=== PATIENT | male | born 1950 | race Caucasian/White ===

== ENCOUNTER 2019-05-26 14:08 | Observation (INO) ==
[2019-05-26] MEDS ORDERED: ONDANSETRON 4 MG/2 ML VIAL IV STA (14:58)
[2019-05-26] MEDS ORDERED: oxyCODONE/ACETAMINOPHEN 5-325 MG TABLET PO STA (14:59)
[2019-05-26] MEDS ORDERED: HYDROmorphone 2 MG/1 ML VIAL IV STA ×2 (15:11→16:05)
[2019-05-26 15:16] LABS: Basophils % 0.3 % (0.0-0.8); Eosinophils % 0.4 % (0.00-10.9); Hematocrit 39.7 VOL% (42.0-52.0); Hemoglobin 13.6 GM/DL (14.0-18.0); Immature Granulocytes % 0.5 %; Immature Granulocytes Absolute 0.05 #; Lymphocytes # 1.4 10*3/uL (1.4-4.0); Lymphocytes % 13.8 % (21.2-54.2); Mean Corpuscular HGB Conc 34.3 GM/DL (32-36); Mean Corpuscular Volume 93.6 FL (87-102); Mean Platelet Volume 9.1 FL (9.6-12.0); Monocytes % 5.7 % (1.7-12.7); Neutrophils % 79.3 % (38.7-73.9); Platelet Count 291 T/CUMM (130-400); Red Blood Count 4.24 MC/CUMM (3.8-5.5); Red Cell Distribution Width 13.3 % (9.3-17.3); White Blood Count 9.9 T/CUMM (4-12)
[2019-05-26 15:39] LABS: Alanine Aminotransferase 36 U/L (16-61); Albumin 3.5 G/DL (3.4-5.0); Alkaline Phosphatase 88 U/L (45-117); Aspartate Amino Transferase 17 U/L (0-37); Bilirubin,Total < 0.39 MG/DL (0.2-1.0); Blood Urea Nitrogen 15 MG/DL (7-18); Calcium 9.6 MG/DL (8.5-10.1); Estimated Glom Filtration Rate 96 ML/MIN; Glucose 132 MG/DL (74-106); Osmolality,Calculated 277.7 MOS/KG (273-304); Total Protein 7.1 G/DL (6.4-8.3)
[2019-05-26] MEDS ORDERED: ACETAMINOPHEN 325 MG TABLET PO PRN (16:55)
[2019-05-26] MEDS ORDERED: ONDANSETRON 4 MG/2 ML VIAL IV PRN (16:55)
[2019-05-26] MEDS ORDERED: traMADol 50 MG TABLET PO PRN (17:33)
[2019-05-26] MEDS ORDERED: NITROGLYCERIN SL 0.4 MG TABLET SL PRN (17:33)
[2019-05-26] MEDS ORDERED: PHENAZOPYRIDINE 95 MG TABLET PO PRN (17:33)
[2019-05-26 19:44] LABS: Apearance,Urine Slightly Hazy (Clear); Bacteria,Urine Occasional /HPF (Few); Bilirubin,Urine Negative (Negative); Blood, Urine Negative (Negative); Glucose,Urine (UA) Negative (Negative); Ketones,Urine Negative (Negative); Nitrite,Urine Negative (Negative); Protein,Urine Negative; RBC,Urine 3 /HPF (0-4); Urine Color Yellow (Yellow); Urine Specific Gravity 1.008 (1.001-1.035); Urine Urobilinogen < 2.0 EU/DL (0.2-1.0); WBC,Urine 45 /HPF (0-6)
[2019-05-26] MEDS: TAMSULOSIN 0.4 MG CAPSULE PO SCH (20:09)
[2019-05-26] MEDS: DOCUSATE SODIUM 100 MG CAPSULE PO SCH (20:09)
[2019-05-26] MEDS: clonazePAM 0.5 MG TABLET PO SCH (20:09)
[2019-05-26] MEDS ORDERED: AMITRIPTYLINE 25 MG TABLET PO SCH (21:00)
[2019-05-26] MEDS: NABUMETONE 500 MG TABLET PO SCH (21:14)
[2019-05-26] MEDS: HEPARIN 5,000 UNIT/1 ML VIAL SUBCUT SCH (22:40)
[2019-05-26] MEDS: MORPHINE 4 MG/1 ML VIAL IV PRN (22:40)
[2019-05-27] MEDS ORDERED: KETOROLAC 30 MG/1 ML VIAL IV ONE (01:26)
[2019-05-27] MEDS: LIDOCAINE 5% PATCH TRANSDERM SCH ×2 (01:48→08:33)
[2019-05-27] MEDS: MORPHINE 4 MG/1 ML VIAL IV PRN ×2 (04:25→08:37)
[2019-05-27 05:30] LABS: Basophils % 0.3 % (0.0-0.8); Eosinophils % 0.3 % (0.00-10.9); Hematocrit 39.2 VOL% (42.0-52.0); Hemoglobin 13.2 GM/DL (14.0-18.0); Immature Granulocytes % 0.4 %; Immature Granulocytes Absolute 0.04 #; Lymphocytes # 1.6 10*3/uL (1.4-4.0); Lymphocytes % 17.4 % (21.2-54.2); Mean Corpuscular HGB Conc 33.7 GM/DL (32-36); Mean Corpuscular Volume 94.7 FL (87-102); Mean Platelet Volume 9.8 FL (9.6-12.0); Neutrophils % 75.6 % (38.7-73.9); Platelet Count 291 T/CUMM (130-400); Red Blood Count 4.14 MC/CUMM (3.8-5.5); Red Cell Distribution Width 13.2 % (9.3-17.3); White Blood Count 9.2 T/CUMM (4-12)
[2019-05-27 06:13] LABS: Albumin 3.4 G/DL (3.4-5.0); Bilirubin,Total 1.1 MG/DL (0.2-1.0); Calcium 9.4 MG/DL (8.5-10.1); Osmolality,Calculated 278.3 MOS/KG (273-304); Risk Ratio 3.23; Thyroid Stimulating Hormone 1.52 uIU/ml (0.358-3.74); Total Protein 7.4 G/DL (6.4-8.3); VLDL CHOLESTEROL 13.8 MG/DL
[2019-05-27] MEDS: HEPARIN 5,000 UNIT/1 ML VIAL SUBCUT SCH ×2 (06:39→14:41)
[2019-05-27] MEDS ORDERED: LORazepam 2 MG/1 ML VIAL IV ONE (07:08)
[2019-05-27] MEDS ORDERED: diphenhydrAMINE 50 MG/1 ML VIAL IV ONE (07:09)
[2019-05-27] MEDS ORDERED: LINACLOTIDE 145 MCG CAPSULE PO SCH (07:30)
[2019-05-27] MEDS ORDERED: MORPHINE ER 15 MG TABLET PO SCH (07:30)
[2019-05-27] MEDS: DOCUSATE SODIUM 100 MG CAPSULE PO SCH (08:32)
[2019-05-27] MEDS: TAMSULOSIN 0.4 MG CAPSULE PO SCH (08:32)
[2019-05-27] MEDS: clonazePAM 0.5 MG TABLET PO SCH (08:33)
[2019-05-27] MEDS: NABUMETONE 500 MG TABLET PO SCH (08:44)
[2019-05-27] MEDS ORDERED: LIDOCAINE 5% PATCH TRANSDERM SCH (09:00)
[2019-05-27] MEDS ORDERED: CARISOPRODOL 350 MG TABLET PO SCH (09:00)
[2019-05-27] MEDS ORDERED: cefTRIAXone 1,000 MG in SYRINGE 1 EACH IV SCH (10:00)
[2019-05-27 13:37] VITALS: BP 134/70
[2019-05-27] MEDS ORDERED: clonazePAM 0.5 MG TABLET PO SCH (21:00)
== END 2019-05-27 15:35 | disposition home health service (06) ==
LOC: N.EDINP 14:08 → N.ED 14:08 → N.EDINP 18:48 → N.2W 19:33
PROVIDERS: ADMIT Internal Medicine; ATTEND Internal Medicine

== ENCOUNTER 2019-08-30 16:30 | Inpatient (IN) ==
[2019-08-30] MEDS ORDERED: KETOROLAC 30 MG/1 ML VIAL IV STA (17:24)
[2019-08-30] MEDS ORDERED: HYDROmorphone 2 MG/1 ML VIAL IV STA ×2 (17:24→21:47)
[2019-08-30] MEDS ORDERED: SODIUM CHLORIDE 0.9% 1,000 ML IV STA (17:24)
[2019-08-30] MEDS ORDERED: ONDANSETRON 4 MG/2 ML VIAL IV STA ×2 (17:24→21:48)
[2019-08-30] MEDS ORDERED: DIPH/TET/ACEL PERT BOOSTER VACCINE 0.5 ML VIAL IM ONE (17:24)
[2019-08-30 19:44] LABS: Basophils % 0.3 % (0.0-0.8); Eosinophils # 0.1 10*3/uL (0.0-0.87); Hematocrit 36.4 VOL% (42.0-52.0); Hemoglobin 11.9 GM/DL (14.0-18.0); Immature Granulocytes % 0.4 %; Immature Granulocytes Absolute 0.05 #; Lymphocytes # 1.2 10*3/uL (1.4-4.0); Lymphocytes % 9.7 % (21.2-54.2); Mean Corpuscular HGB Conc 32.7 GM/DL (32-36); Mean Corpuscular Volume 97.8 FL (87-102); Mean Platelet Volume 9.7 FL (9.6-12.0); Monocytes % 4.9 % (1.7-12.7); Neutrophils % 83.7 % (38.7-73.9); Platelet Count 239 T/CUMM (130-400); Red Blood Count 3.72 MC/CUMM (3.8-5.5); Red Cell Distribution Width 12.7 % (9.3-17.3); White Blood Count 12.7 T/CUMM (4-12)
[2019-08-30 19:54] LABS: PT Patient Result 10.5 SECS (9.6-12.2)
[2019-08-30 20:05] LABS: Alanine Aminotransferase 19 U/L (16-61); Albumin 3.2 G/DL (3.4-5.0); Alkaline Phosphatase 105 U/L (45-117); Aspartate Amino Transferase 11 U/L (0-37); Blood Urea Nitrogen 14 MG/DL (7-18); Calcium 8.9 MG/DL (8.5-10.1); Estimated Glom Filtration Rate 79 ML/MIN; Glucose 99 MG/DL (74-106); Osmolality,Calculated 277.5 MOS/KG (273-304)
[2019-08-30 20:58] LABS: Apearance,Urine Slightly Hazy (Clear); Bacteria,Urine Occasional /HPF (Few); Bilirubin,Urine Negative (Negative); Blood, Urine Negative (Negative); Glucose,Urine (UA) Negative (Negative); Ketones,Urine Negative (Negative); Mucus,Urine Occasional /LPF (Occasional); Nitrite,Urine Negative (Negative); Protein,Urine Negative; RBC,Urine 4 /HPF (0-4); Urine Color Yellow (Yellow); Urine Specific Gravity 1.008 (1.001-1.035); Urine Urobilinogen < 2.0 EU/DL (0.2-1.0); WBC,Urine 207 /HPF (0-6)
[2019-08-30] MEDS ORDERED: ALBUTEROL/IPRATROPIUM 3 ML NEB RESP TX PRN (22:50)
[2019-08-31] MEDS: SODIUM CHLORIDE 0.9% 1,000 ML IV SCH ×2 (00:59→12:50)
[2019-08-31] MEDS: HYDROmorphone 2 MG/1 ML VIAL IV PRN ×3 (01:21→07:35)
[2019-08-31] MEDS: ONDANSETRON 4 MG/2 ML VIAL IV PRN ×2 (01:22→07:42)
[2019-08-31] MEDS: cefTRIAXone 1,000 MG in SYRINGE 1 EACH IV SCH (05:25)
[2019-08-31 05:41] LABS: Basophils % 0.4 % (0.0-0.8); Eosinophils # 0.1 10*3/uL (0.0-0.87); Eosinophils % 0.9 % (0.00-10.9); Hematocrit 36.5 VOL% (42.0-52.0); Hemoglobin 11.5 GM/DL (14.0-18.0); Immature Granulocytes % 0.6 %; Immature Granulocytes Absolute 0.06 #; Lymphocytes # 1.1 10*3/uL (1.4-4.0); Lymphocytes % 10.3 % (21.2-54.2); Mean Corpuscular HGB Conc 31.5 GM/DL (32-36); Mean Corpuscular Volume 100.3 FL (87-102); Mean Platelet Volume 9.8 FL (9.6-12.0); Monocytes % 6.8 % (1.7-12.7); Platelet Count 226 T/CUMM (130-400); Red Blood Count 3.64 MC/CUMM (3.8-5.5); Red Cell Distribution Width 12.7 % (9.3-17.3); White Blood Count 10.3 T/CUMM (4-12)
[2019-08-31 05:51] LABS: Albumin 3.3 G/DL (3.4-5.0); Bilirubin,Total 0.8 MG/DL (0.2-1.0); Calcium 8.9 MG/DL (8.5-10.1); Osmolality,Calculated 277.5 MOS/KG (273-304)
[2019-08-31] MEDS ORDERED: ceFAZolin 1,000 MG in SYRINGE 1 EACH IV ONE (11:00)
[2019-08-31] MEDS ORDERED: LACTATED RINGERS 1,000 ML IV SCH (11:30)
[2019-08-31] MEDS ORDERED: MIDAZOLAM 2 MG/2 ML VIAL ONE ×2 (11:38→12:57)
[2019-08-31] MEDS ORDERED: diphenhydrAMINE CAP 25 MG CAPSULE PO PRN (12:07)
[2019-08-31] MEDS ORDERED: BISACODYL 10 MG SUPP RECTAL PRN (12:07)
[2019-08-31] MEDS ORDERED: PROMETHAZINE 25 MG/1 ML VIAL IM PRN (12:07)
[2019-08-31] MEDS ORDERED: LACTULOSE 20 GM/30 ML UDCUP PO PRN (12:07)
[2019-08-31] MEDS ORDERED: MORPHINE 4 MG/1 ML VIAL IV PRN (12:07)
[2019-08-31] MEDS ORDERED: KETAMINE 500 MG/10 ML VIAL ONE (12:57)
[2019-08-31] MEDS ORDERED: GLYCOPYRROLATE 0.4 MG/2 ML VIAL ONE (12:57)
[2019-08-31] MEDS ORDERED: propofoL 200 MG/20 ML VIAL IV ONE (12:57)
[2019-08-31] MEDS ORDERED: SODIUM CHLORIDE 0.9% 100 ML IV ONE (12:57)
[2019-08-31] MEDS ORDERED: LIDOCAINE 2% 5 ML VIAL ONE (12:58)
[2019-08-31] MEDS: PANTOPRAZOLE 40 MG TABLET PO SCH (14:55)
[2019-08-31] MEDS ORDERED: HYDROmorphone 2 MG/1 ML VIAL IV PRN (15:54)
[2019-08-31] MEDS: ceFAZolin 1,000 MG in SYRINGE 1 EACH IV SCH (18:36)
[2019-08-31] MEDS: AMITRIPTYLINE 100 MG TABLET PO SCH (20:41)
[2019-08-31] MEDS: TAMSULOSIN 0.4 MG CAPSULE PO SCH (20:41)
[2019-08-31] MEDS: clonazePAM 0.5 MG TABLET PO SCH (20:41)
[2019-09-01] MEDS: ceFAZolin 1,000 MG in SYRINGE 1 EACH IV SCH ×2 (02:32→12:59)
[2019-09-01] MEDS: SODIUM CHLORIDE 0.9% 1,000 ML IV SCH ×3 (02:33→23:36)
[2019-09-01] MEDS: MAGNESIUM HYDROXIDE SUSP 30 ML UDCUP PO PRN (04:05)
[2019-09-01 05:48] LABS: Basophils % 0.1 % (0.0-0.8); Hematocrit 35.7 VOL% (42.0-52.0); Hemoglobin 11.5 GM/DL (14.0-18.0); Immature Granulocytes % 0.8 %; Immature Granulocytes Absolute 0.13 #; Lymphocytes # 1.3 10*3/uL (1.4-4.0); Lymphocytes % 7.6 % (21.2-54.2); Mean Corpuscular HGB Conc 32.2 GM/DL (32-36); Mean Corpuscular Volume 98.6 FL (87-102); Monocytes % 6.1 % (1.7-12.7); Neutrophils % 85.4 % (38.7-73.9); Platelet Count 242 T/CUMM (130-400); Red Blood Count 3.62 MC/CUMM (3.8-5.5); Red Cell Distribution Width 12.6 % (9.3-17.3); White Blood Count 17.1 T/CUMM (4-12)
[2019-09-01 06:17] LABS: Calcium 9.3 MG/DL (8.5-10.1); Osmolality,Calculated 274.8 MOS/KG (273-304)
[2019-09-01] MEDS: FONDAPARINUX 2.5 MG/0.5 ML SYRINGE SUBCUT SCH (07:29)
[2019-09-01] MEDS ORDERED: BUPIVACAINE MPF 0.25% 30 ML VIAL ONE (07:34)
[2019-09-01] MEDS: cefTRIAXone 1,000 MG in SYRINGE 1 EACH IV SCH (07:42)
[2019-09-01] MEDS: PANTOPRAZOLE 40 MG TABLET PO SCH (08:33)
[2019-09-01] MEDS: TAMSULOSIN 0.4 MG CAPSULE PO SCH ×2 (08:33→20:35)
[2019-09-01] MEDS: clonazePAM 0.5 MG TABLET PO SCH ×2 (08:34→20:34)
[2019-09-01] MEDS ORDERED: TUBERCULIN SKIN TEST 0.1 ML SYRINGE INTRADERM ONE (08:54)
[2019-09-01] MEDS ORDERED: ERGOCALCIFEROL 50,000 UNIT CAPSULE PO SCH (09:00)
[2019-09-01] MEDS ORDERED: ceFAZolin 1,000 MG in SYRINGE 1 EACH IV SCH (12:00)
[2019-09-01] MEDS: AMITRIPTYLINE 100 MG TABLET PO SCH (20:35)
[2019-09-02] MEDS: cefTRIAXone 1,000 MG in SYRINGE 1 EACH IV SCH (05:01)
[2019-09-02] MEDS: FONDAPARINUX 2.5 MG/0.5 ML SYRINGE SUBCUT SCH (05:09)
[2019-09-02 06:01] LABS: Basophils % 0.2 % (0.0-0.8); Eosinophils % 0.1 % (0.00-10.9); Hematocrit 32.5 VOL% (42.0-52.0); Hemoglobin 10.5 GM/DL (14.0-18.0); Immature Granulocytes % 0.6 %; Immature Granulocytes Absolute 0.07 #; Lymphocytes # 0.9 10*3/uL (1.4-4.0); Lymphocytes % 7.4 % (21.2-54.2); Mean Corpuscular HGB Conc 32.3 GM/DL (32-36); Mean Corpuscular Volume 98.2 FL (87-102); Mean Platelet Volume 9.9 FL (9.6-12.0); Monocytes % 5.9 % (1.7-12.7); Neutrophils % 85.8 % (38.7-73.9); Platelet Count 196 T/CUMM (130-400); Red Blood Count 3.31 MC/CUMM (3.8-5.5); Red Cell Distribution Width 12.8 % (9.3-17.3); White Blood Count 12.4 T/CUMM (4-12)
[2019-09-02] MEDS: MAGNESIUM HYDROXIDE SUSP 30 ML UDCUP PO PRN ×2 (06:06→13:09)
[2019-09-02] MEDS: SODIUM CHLORIDE 0.9% 1,000 ML IV SCH (06:08)
[2019-09-02 06:18] LABS: Calcium 8.6 MG/DL (8.5-10.1); Osmolality,Calculated 275.5 MOS/KG (273-304)
[2019-09-02] MEDS: TAMSULOSIN 0.4 MG CAPSULE PO SCH ×2 (09:00→20:25)
[2019-09-02] MEDS: PANTOPRAZOLE 40 MG TABLET PO SCH (09:00)
[2019-09-02] MEDS: clonazePAM 0.5 MG TABLET PO SCH ×2 (09:03→20:28)
[2019-09-02] MEDS: AMITRIPTYLINE 100 MG TABLET PO SCH (20:24)
[2019-09-03] MEDS: cefTRIAXone 1,000 MG in SYRINGE 1 EACH IV SCH (06:18)
[2019-09-03] MEDS: FONDAPARINUX 2.5 MG/0.5 ML SYRINGE SUBCUT SCH (06:21)
[2019-09-03 06:24] LABS: Basophils % 0.4 % (0.0-0.8); Eosinophils # 0.4 10*3/uL (0.0-0.87); Eosinophils % 4.6 % (0.00-10.9); Hematocrit 30.8 VOL% (42.0-52.0); Immature Granulocytes % 0.6 %; Immature Granulocytes Absolute 0.05 #; Lymphocytes # 1.4 10*3/uL (1.4-4.0); Lymphocytes % 15.2 % (21.2-54.2); Mean Corpuscular HGB Conc 32.5 GM/DL (32-36); Mean Corpuscular Volume 97.5 FL (87-102); Mean Platelet Volume 10.1 FL (9.6-12.0); Monocytes % 7.2 % (1.7-12.7); Platelet Count 213 T/CUMM (130-400); Red Blood Count 3.16 MC/CUMM (3.8-5.5); Red Cell Distribution Width 12.8 % (9.3-17.3)
[2019-09-03 06:52] LABS: Osmolality,Calculated 272.7 MOS/KG (273-304)
[2019-09-03] MEDS: clonazePAM 0.5 MG TABLET PO SCH (09:00)
[2019-09-03] MEDS: TAMSULOSIN 0.4 MG CAPSULE PO SCH (09:00)
[2019-09-03] MEDS: PANTOPRAZOLE 40 MG TABLET PO SCH (09:00)
[2019-09-03 12:39] VITALS: BP 134/73
== END 2019-09-03 14:43 | disposition swing bed (61) | DRG 481 ==
LOC: EDUNIT# → EDBD → N.ED 16:30 → N.EDINP 22:50 → N.3E 23:33
PROVIDERS: ADMIT Internal Medicine Geriatric Medicine; ATTEND Internal Medicine Geriatric Medicine